=== PATIENT | female | born 1970 | race Caucasian/White ===

== ENCOUNTER → 2018-08-12 | Outpatient (CLI) | payer BC ==
--- NOTE | 2018-08-12 11:42 | MR ---
EXAMINATION TYPE: MR brain/orbits wo/w con DATE OF EXAM: 08/12/2018 COMPARISON: None HISTORY: Optic neuritis TECHNIQUE: Multiplanar, multisequence images of the brain and brainstem, orbits is performed without and with IV contrast, utilizing 7 mL intravenous Gadavist . FINDINGS: Diffusion weighted images demonstrate no evidence of a recent infarct or other diffusion ab normality. There is no extra-axial fluid collection. At the level of the mamillary body, tuber ciner eum on the left there is some increased T2 and inversion recovery signal present that is asymmetric, there is no abnormal enhancement, T1 signal is low. Left frontal white matter hyperintensities presen t on inversion recovery T2-weighted sequences measuring 6 mm, axial image #18, some small scattered d eep white matter hyperintensities also present on axial image 22, overall there are approximately 5-1 0 lesions present. The ventricular system and cisternal spaces are normal in size and appearance. Th e brain volume is age appropriate. Midline structures demonstrate partially empty sella, corpus callosum and cervical medullary junction are normal, cerebellopontine angles are unremarkable. The orbits show symmetric appearance. The glob es are unremarkable. No abnormal enhancement. Optic nerves show a symmetric and unremarkable appearan ce. There are normal vascular flow voids. The craniocervical junction appears within normal limits. Post contrast images demonstrate no abnormal enhancement. The dural venous sinuses appear patent. Th e visualized sinuses are clear and the globes are intact. IMPRESSION: Nonspecific white matter demyelination and signal abnormalities described at the level of the mamillary body, tuber cinereum, consider multiple sclerosis in the appropriate clinical setting, hypertension, migraine headaches, vasculitis or chronic small vessel ischemic change, Lyme disease.
== END ==
LOC: RADMRIMAIN 07:09
PROVIDERS: ATTEND Ophthalmology
DX: G37.9 Demyelinating disease of central nervous system, unspecified (principal); R90.89 Other abnormal findings on diagnostic imaging of central nervous system; H46.9 Unspecified optic neuritis
CPT/HCPCS: 70543; 70553; A9585

== ENCOUNTER → 2018-09-08 | Outpatient (CLI) | payer BC ==
[2018-09-08 16:14] LABS: Appearance,CSF Clear
[2018-09-08 16:15] LABS: CSF Tube Number 4
[2018-09-08 16:26] LABS: Total Protein,CSF 53 mg/dL (12-60)
[2018-09-08 17:04] LABS: Nucleated Cells, CSF 4 u/L (0-5); Red Blood Cell,CSF 0 u/L (0-10)
[2018-09-10 14:36] LABS: IgG/Albumin Index (CSF) 0.59 (0.00 - 0.77)
== END | disposition home or self-care (01) ==
LOC: LABWHC1 08:42
PROVIDERS: ATTEND Nurse Practitioner Family
DX: R90.82 White matter disease, unspecified (principal)
CPT/HCPCS: 36415; 82040; 82042; 82784; 83873; 83916; 84157; 87801; 89050

== ENCOUNTER → 2018-09-19 | Outpatient (CLI) | payer BC ==
[2018-09-19 14:23] LABS: Basophils # (A) 0.1 k/uL (0-0.2); Basophils % (A) 1 %; Eosinophils # (A) 0.8 k/uL (0-0.7); Eosinophils % (A) 7 %; HCT 50.1 % (34.0-46.0); HGB 16.3 gm/dL (11.4-16.0); Lymphocytes # (A) 1.8 k/uL (1.0-4.8); Lymphocytes % (A) 15 %; MCH 31.9 pg (25.0-35.0); MCHC 32.6 g/dL (31.0-37.0); Mean Platelet Volume 7.8; Monocytes # (A) 0.4 k/uL (0-1.0); Monocytes % (A) 4 %; Neutrophils # (A) 8.6 k/uL (1.3-7.7); Neutrophils % (A) 72 %; Platelet Count 374 k/uL (150-450); RBC 5.11 m/uL (3.80-5.40); RDW 14.6 % (11.5-15.5)
[2018-09-19 20:07] LABS: African American GFR (CKD) 87.6 (60.0-200.0); Albumin 4.7 g/dL (3.80-4.90); Albumin/Globulin Ratio 1.81 (1.60-3.17); Anion Gap 10.2 mmol/L (4.00-12.00); BUN/Creat Ratio 14.44 Ratio (12.00-20.00); Carbon Dioxide 20.8 mmol/L (21.6-31.8); Globulin 2.6 g/dL (1.6-3.3); Potassium 4.5 mmol/L (3.5-5.5); Total Bilirubin 0.4 mg/dL (0.3-1.2); Total Protein 7.3 g/dL (6.2-8.2)
[2018-09-19 20:10] LABS: T4, Free (Free Thyroxine) 1.1 ng/dL (0.80-1.80)
[2018-09-19 20:12] LABS: Vitamin D 25 Hydroxy 27.6 ng/mL (30.0-100.0)
[2018-09-19 20:34] LABS: Hemoglobin A1C 5.8 % (4.0-6.0)
[2018-09-22 00:50] LABS: HTLV-1 and 2 (EIA) Negative (Negative)
[2018-09-23 12:46] LABS: Vit B1(Thiamine) 94 ug/L (38-122)
== END | disposition home or self-care (01) ==
LOC: LABWHC1 13:30
PROVIDERS: ATTEND Nurse Practitioner Family
DX: G35 Multiple sclerosis (principal)
CPT/HCPCS: 36415; 80053; 82306; 82607; 83036; 84207; 84425; 84439; 84443; 84481; 84591; 85025; 86704; 86705; 86706; 86787; 86790; 87340

== ENCOUNTER → 2020-05-17 | Outpatient (CLI) | payer BC ==
--- NOTE | 2020-05-17 14:02 | CT ---
EXAMINATION TYPE: CT chest wo con DATE OF EXAM: 05/17/2020 COMPARISON: None HISTORY: Sarcoidosis CT DLP: 955.10 mGycm, Automated exposure control for dose reduction was used. CONTRAST: None TECHNIQUE: Axial images were obtained at 1 mm thick sections at 10 mm intervals. This will limit po rtions of the examination which may not be visualized within the [id number]. Images were obtained in the prone and supine views. FINDINGS: Portion of the thyroid visualized is normal. There is a 0.4 cm nodule within the right midlung. Series 8 image 13. There may be a punctate 0.3 cm nodule within the inferior right lung base, series 8 image 23. No enlarged mediastinal or hilar adenopathy is evident. The ascending aorta diameter at the level o f the main pulmonary artery is 3.2 cm. The main pulmonary artery diameter at the bifurcation is 2.[address] sections are obtained through the upper abdomen. Abdomen is essentially unremarkable. IMPRESSIONS: 1. Couple of small nonspecific nodules within the right lung discussed above. 2. No suspicious changes to suggest sarcoidosis not otherwise evident. 3. Remainder of the study appears unremarkable.
== END | disposition home or self-care (01) ==
LOC: RADCTMAIN 07:33
PROVIDERS: ATTEND Ophthalmology
DX: R91.8 Other nonspecific abnormal finding of lung field (principal)
CPT/HCPCS: 71250

== ENCOUNTER → 2021-02-21 | Outpatient (CLI) | payer BC ==
--- NOTE | 2021-02-21 15:41 | BD ---
EXAMINATION TYPE: Axial Bone Density DATE OF EXAM: 02/21/2021 COMPARISON: NONE CLINICAL HISTORY: Height: 63.5 IN Weight: 213 LBS RISK FACTORS HISTORY OF: Family History of Osteoporosis: YES MOTHER Active: MODERATE Diet low in dairy products/other sources of calcium: YES Postmenopausal woman: AGE 48 MEDICATIONS: Additional Medications: VIT D , CALCIUM, ATENOLOL, ATORVASTATIN, FLEXERIL, EYE DROPS, TUMERIC, EXAM MEASUREMENTS: Bone mineral densitometry was performed using the [employer]. Bone mineral density as measured about the Lumbar spine is: ----- L1-L4(G/cm2): 1.276 T Score Values are as follows: ----- L2: 0.2 ----- L3: 2.1 ----- L4: 1.0 ----- L1-L4: 0.8 Bone mineral density BASELINE Bone mineral density about the R hip (g/cm2): 1.108 Bone mineral density about the L hip (g/cm2): 1.148 T Score values are as follows: -----R Neck: 0.5 -----L Neck: 0.8 -----R Total: 1.3 -----L Total: 1.8 Bone mineral density BASELINE IMPRESSION: Normal (Values between +1 and -1 indicate normal bone mass). Consider repeating this study in 5 year s or sooner if there is some new clinical indication. NOTE: T-SCORE=SD OF THE YOUNG ADULT MEAN.
--- NOTE | 2021-02-23 09:59 | MM ---
Reason for exam: screening (asymptomatic). Last mammogram was performed 14 years and 8 months ago. History: Patient is postmenopausal. Benign right mammotome panel of the right breast, June 13, 2005. Physical Findings: A clinical breast exam by your physician is recommended on an annual basis and results should be correlated with mammographic findings. MG 3D Screening Mammo W/Cad Bilateral CC, MLO, and XCCL view(s) were taken. Prior study comparison: July 04, 2006, CAD bilateral diagnostic mammogram. The breast tissue is almost entirely fat. Previous mammotome biopsy in the right breast. There is chronic nodularity in the right breast. No significant changes when compared with prior studies. ASSESSMENT: Negative, BI-RAD 1 RECOMMENDATION: Routine screening mammogram of both breasts in 1 year.
== END | disposition home or self-care (01) ==
LOC: RADMAMWWP 14:20
PROVIDERS: ATTEND Family Medicine
DX: Z12.31 Encounter for screening mammogram for malignant neoplasm of breast (principal); E55.9 Vitamin D deficiency, unspecified; G35 Multiple sclerosis; Z78.0 Asymptomatic menopausal state; Z82.62 Family history of osteoporosis
CPT/HCPCS: 77063; 77067; 77080

== ENCOUNTER → 2021-05-03 | Outpatient (CLI) | payer BC ==
--- NOTE | 2021-05-03 11:53 | CT ---
EXAMINATION TYPE: CT chest wo con DATE OF EXAM: 05/03/2021 COMPARISON: 05/17/2020 HISTORY: lung nodule CT DLP: 787 mGycm. Automated Exposure Control for Dose Reduction was Utilized. TECHNIQUE: CT scan of the thorax is performed without IV contrast. FINDINGS: LUNGS: The lungs are grossly clear, there is no consolidative pneumonia. Tiny 3 and 1 mm right lower lobe pulmonary subpleural nodules are stable and have a benign appearance.. There is no pleural eff usion or pneumothorax seen. The tracheobronchial tree is patent. MEDIASTINUM: Lack of IV contrast is noted to limit evaluation for mediastinal and especially hilar ad enopathy. There are no definitive greater than 1 cm hilar or mediastinal lymph nodes. No cardiomega ly or pericardial effusion is seen. OTHER: Hypertrophic and degenerative change of the spine. Postcholecystectomy changes with low-attenu ation liver correlate IMPRESSION: 1. Stable sub-5 mm pulmonary nodules have a benign appearance. 2. Hepatic steatosis.
== END | disposition home or self-care (01) ==
LOC: RADCTMAIN 11:07
PROVIDERS: ATTEND Internal Medicine Pulmonary Disease
DX: R91.8 Other nonspecific abnormal finding of lung field (principal); K76.0 Fatty (change of) liver, not elsewhere classified
CPT/HCPCS: 71250

== ENCOUNTER → 2022-02-27 | Outpatient (CLI) | payer BC ==
--- NOTE | 2022-02-28 07:37 | MM ---
Reason for Exam: Screening (asymptomatic). Last screening mammogram was performed 12 month(s) ago. Patient History: Menarche at age 11. First Full-Term at age 25. Postmenopausal. 06/13/2005, Benign Core Biopsy on the right side. Risk Values: Shayy 5 year model risk: 1.4%. NCI Lifetime model risk: 11.2%. Prior Study Comparison: 05/10/2005 Bilateral Diagnostic Mammogram, [facility]. 07/04/2006 Bilateral Diagnostic Mammogram, [facility]. 02/21/2021 Bilateral Screening Mammogram, [facility]. Tissue Density: The breast tissue is almost entirely fat. Findings: Analyzed By CAD. There is no suspicious group of microcalcifications or new suspicious mass in either breast. Overall Assessment: Negative, BI-RAD 1 Management: Screening Mammogram of both breasts in 1 year. A clinical breast exam by your physician is recommended on an annual basis and results should be correlated with mammographic findings. [facility] will attempt to contact patient to return for supplemental views and ultrasound if indicated. Electronically signed and approved by: Jesse Wilson DO
== END | disposition home or self-care (01) ==
LOC: RADMAMWWP 07:55
PROVIDERS: ATTEND Family Medicine
DX: Z12.31 Encounter for screening mammogram for malignant neoplasm of breast (principal); Z78.0 Asymptomatic menopausal state; Z98.890 Other specified postprocedural states
CPT/HCPCS: 77063; 77067

== ENCOUNTER → 2022-08-14 | Outpatient (CLI) | payer BC ==
--- NOTE | 2022-08-14 10:14 | US ---
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 TECHNIQUE: Multiple sonographic images of the right upper quadrant are obtained. FINDINGS: EXAM MEASUREMENTS: Liver Length: 14.8 cm Gallbladder Wall: Surgically absent CBD: 0.4 cm Right Kidney: 9.5 x 4.5 x 4.0 cm RN MATERNAL CHILD NOTES: Pancreas: Obscured by bowel gas Liver: Increased attenuation Gallbladder: Surgically absent CBD: wnl Right Kidney: No hydronephrosis or masses seen The pancreas is obscured by overlying bowel gas. Liver is diffusely hyperechoic which limits evaluati on. Within these limitations no focal lesions identified. Gallbladder is surgically absent. Common bi le duct within normal limits. Right kidney is unremarkable without evidence of solid mass, hydronephr osis, or nephrolithiasis. IMPRESSION: 1. No acute process. 2. Diffusely hyperechoic appearance of the liver without focal lesion identified. 3. Postcholecystectomy changes.
== END | disposition home or self-care (01) ==
LOC: RADUSWWP 09:32
PROVIDERS: ATTEND Internal Medicine Hematology & Oncology
DX: E83.110 Hereditary hemochromatosis (principal); Z90.49 Acquired absence of other specified parts of digestive tract
CPT/HCPCS: 76705

== ENCOUNTER → 2023-11-12 | Outpatient (CLI) | payer BC ==
--- NOTE | 2023-11-13 21:50 | US ---
EXAMINATION TYPE: US liver DATE OF EXAM: 11/12/2023 COMPARISON: NONE CLINICAL INDICATION: Female, 53 years old with history of E83.110 HEMOCHROMOTOSIS; Hemochromatosis ga llbladder removed. Limited due to bowel gas. TECHNIQUE: Multiple sonographic images of the right upper quadrant are obtained. FINDINGS: EXAM MEASUREMENTS: Liver Length: 14.4 cm Gallbladder Wall: Surgically absent CBD: .5 cm Right Kidney: 10.3 x 4.4 x 3.2 cm RELEASE SPECIALIST NOTES: Pancreas: Obscured by bowel gas Liver: Increased attenuation Gallbladder: Surgically absent Evidence for sonographic Luu's sign: No CBD: wnl Right Kidney: No hydronephrosis or masses seen IMPRESSION: 1. No acute abnormality right upper quadrant ultrasound. 2. Some mild fatty infiltration through the non enlarged liver [facility] Carmina Sweeney, , 11/13/2023 9:48 PM
== END | disposition home or self-care (01) ==
LOC: RADUSWWP 10:26
PROVIDERS: ATTEND Internal Medicine Hematology & Oncology
DX: E83.110 Hereditary hemochromatosis
CPT/HCPCS: 76705